=== PATIENT | male | born 1950 | race Caucasian/White ===

== ENCOUNTER → 2023-04-10 | Emergency (ER) | payer OTHER, MEDICARE ==
[~2023-04-10] VITALS: Ht 190.5 cm; Wt 118.4 kg
[~2023-04-10] MED LIST: COZAAR25 MG PO; CYMBALTA20 MG PO; DICYCLOMINE HCL20 MG PO; OMEPRAZOLE20 MG PO
[2023-04-10 15:33] LABS: BASOPHILS 0.4 % (0-2); EOSINOPHILS 6.2 % (0-6); HEMATOCRIT 41.9 % (35.0-50.0); HEMOGLOBIN 14.2 g/dL (12.0-18.0); LYMPHOCYTES 12.5 % (24-44); MCH 31.8 (27-36); MCHC 33.8 g/dl (30-36); MCV 94.1 fl (81-99); MONOCYTES 10.4 % (0-12); NEUTROPHILS 70.5 % (39-80); PLATELET COUNT 273 K/uL (140-440); RBC 4.45 M/ul (4.3-5.7)
[2023-04-10 15:53] LABS: ALBUMIN/GLOBULIN RATIO 1.08 (1.1-2.4); ANION GAP 15.8 (7-21); BILIRUBIN, TOTAL 0.7 ng/dL (0.2-1.0); CALCIUM 8.4 mg/dL (8.5-10.1); CREATININE, SERUM 1.2 mg/dL (0.70-1.30); MAGNESIUM 1.8 mg/dL (1.8-2.4); POTASSIUM 3.8 mmol/L (3.5-5.1); PROTEIN, TOTAL 7.7 g/dL (6.4-8.2)
--- OUTSIDE RECORDS SUMMARY | 2023-04-10 16:47 | XMS ---
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 Franck has no Care Guidelines for this patient. Leonor VISIT COUNT (12 MO.) 1 FAY Robleroagijessica Marquez Tiera TOTAL 2 NOTE: Visits indicate total known visits. ED/UCC VISIT TRACKING (12 MO.) 04/10/2023 15:07 [facility] TYPE: Emergency COMPLAINT: - CHEST PAIN 03/14/2023 10:21 [facility] TYPE: Emergency DIAGNOSES: 1. Shortness of breath 2. Chronic cough 3. Weakness INPATIENT VISIT TRACKING (12 MO.) No inpatient visits to display in this time frame [email or web address]
[2023-04-10 17:00] VITALS: BP 137/86
--- NOTE | 2023-04-10 18:26 | EKG ---
[facility] [address] [place], [place] [address] Signed Normal sinus rhythm Normal ECG No previous ECGs available Confirmed by DAGMAR MURRELL MD ([id number]) on 04/10/2023 6:25:47 PM Electronically Signed By: DAGMAR MURRELL 04/10/23 1826 PATIENT NAME: LUANNE CASTORENA Electrocardiogram DATE OF : 52 PHYSICIAN: DAGMAR MURRELL REPORT #: [id number] REPORT IS CONFIDENTIAL AND NOT TO BE RELEASED WITHOUT AUTHORIZATION
== END ==
LOC: ED 15:06
PROVIDERS: Emergency Medicine
DX: R07.89 Other chest pain (principal); R74.01 Elevation of levels of liver transaminase levels; I10 Essential (primary) hypertension; Z88.8 Allergy status to other drugs, medicaments and biological substances; Z79.899 Other long term (current) drug therapy
CPT/HCPCS: 36415; 80053; 83735; 84484; 85025; 93005; 93010; A9270